=== PATIENT | female | born 2000 | race Caucasian/White ===

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

== ENCOUNTER 2020-08-04 00:15 | Inpatient (IN) | payer OTHER ==
[~2020-08-04] VITALS: Ht 154.9 cm; Wt 72.6 kg
== END 2020-08-07 13:05 | disposition home or self-care (01) | DRG 807 ==
LOC: OBS/DEL 00:15 → OB/GYN 20:58 → LDR 20:58 → OB/GYN 08-05 20:44
PROVIDERS: ADMIT Obstetrics & Gynecology; ATTEND Obstetrics & Gynecology
PROC: 10E0XZZ Delivery of Products of Conception, External Approach (ICD-10-PCS; principal; 2020-08-05)
PROC: 0UQMXZZ Repair Vulva, External Approach (ICD-10-PCS; 2020-08-05)
PROC: 3E033VJ Introduction of Other Hormone into Peripheral Vein, Percutaneous Approach (ICD-10-PCS; 2020-08-05)
PROC: 4A1HXFZ Monitoring of Products of Conception, Cardiac Rhythm, External Approach (ICD-10-PCS; 2020-08-05)
DX: O71.82 Other specified trauma to perineum and vulva (principal); Z37.0 Single live birth; O36.5930 Maternal care for other known or suspected poor fetal growth, third trimester, not applicable or unspecified; Z3A.37 37 weeks gestation of pregnancy